=== PATIENT | female | born 1980 | race Caucasian/White ===

== ENCOUNTER 2022-01-13 12:45 | Emergency (ER) | payer BC, SELFPAY ==
[2022-01-13] MEDS ORDERED: Dexamethasone 10 MG/ML VIAL ONE (13:38)
[2022-01-13] MEDS ORDERED: Acetaminophen/Codeine 30-300mg Tablet ONE (13:39)
[2022-01-13] MEDS ORDERED: Ketorolac Tromethamine 30 MG/ML VIAL ONE (13:39)
[2022-01-13] MEDS ORDERED: tiZANidine HCl 4 MG TAB PO SCH (14:15)
== END 2022-01-13 14:00 | disposition home or self-care (01) ==
LOC: CSHERS 12:45
DX: M54.50 Low back pain, unspecified (principal); E03.9 Hypothyroidism, unspecified; Z87.891 Personal history of nicotine dependence
CPT/HCPCS: 96372; 99283; J1100; J1885